=== PATIENT | female | born 1995 | race Caucasian/White ===

== ENCOUNTER 2017-05-12 13:32 | Outpatient (CLI) | payer MEDICAID, OTHER ==
[~2017-05-12] VITALS: Ht 157.5 cm; Wt 64.2 kg
[2017-05-12] MEDS ORDERED: FER325 PO (13:47)
[2017-05-12] MEDS ORDERED: PREN-93 PO (13:47)
[2017-05-12 13:48] VITALS: BP 110/66; PULSE 90; RESP 18; Ht 157.5 cm; Wt 64.2 kg
--- NOTE | 2017-05-12 14:38 | RADRPT ---
PROCEDURE: US OB biophysical profile. CLINICAL INDICATION: Decreased movements TECHNIQUE: Multiple sonographic images of the pelvis were obtained. The images were reviewed on a PACS workstation. COMPARISON: None FINDINGS: There is a viable intrauterine gestation. There is a normal amount of amniotic fluid with an DEYANIRA = 10.2 cm. Cardiac activity is present with 148 beats per minute. The placenta is posterior. No evidence of placenta previa or abruption. Biophysical profile: movement 2/2 tone 2/2. breathing 2/2 DEYANIRA 2/2 Total 01/02 IMPRESSION: Normal biophysical profile. Estimated gestational age: 28 weeks and 5 days RPTAT:AAJJ Physician Cassandra Date Time Electronically viewed and signed by Physician Cassandra on 05/12/2017 14:38 /
--- NOTE | 2017-05-12 14:47 | TRIAGE ---
OB Triage Datetime Report Generated by CPN: 05/12/2017 14:47 Datetime: 05/12/2017 13:45 Assessment Type: Triage Maternal Assessment Level of Consciousness: Fully Conscious DTR's/Clonus: DTRs 2+; No Clonus Headache: Denies Blurred Vision: No Respiratory Effort: Unlabored; Regular Rhythm; Equal Expansion Breath Sounds, Left: Clear and Equal Breath Sounds, Right: Clear and Equal Nausea/Vomiting: Denies RUQ Epigastric Pain: Denies Lower Extremities Edema: None Degree: None Upper Extremities Edema: None Degree: None Facial Edema: None Fall Risk Assessment History of Falling: (0) No Secondary Diagnosis: (0) No Ambulatory Aid: (0) Bedrest/Nurse Assist IV Therapy: (0) No Gait: (0) Normal/Bedrest/Immobile Mental Status: (0) Oriented to Own Ability Fall Score: 0 Fall Risk Score Definition: No Risk: No action required Datetime: 05/12/2017 13:44 Time of Arrival: 05/12/2017 13:28 EGA: 28.5 Arrived By: Ambulatory Arrived From: Home Chief Complaint: pt here c/o DFM Movement: Decreased Contractions: Denies/Absent Rupture of Membranes: Denies Vaginal Bleeding: None Vaginal Discharge: Denies Recent Sexual Intercouse: Denies Abdominal Trauma: Not Applicable Patient Complaints: None Time Provider Notified: 05/12/2017 13:50 Provider Notified: ANAI Initial Plan: NST/BPP Datetime: 05/12/2017 13:41 Labor Evaluation Monitor Mode: External Heart Rate Monitor Mode: External US
--- NOTE | 2017-05-12 14:58 | PN ---
Triage Information Date/Time 22 years old female 38 weeks and 5 days came to triage unit with complaint of decreased movement as of yesterday had biophysical profile 01/02 with DEYANIRA 10.2 patient reassured recommended to continue follow-up at [facility] with kick count instructions. Reason for visit: Decreased movement Weeks of Gestation 28 weeks 5 /Para Diabetes: none Hypertention: none Objective Vital Signs Date Time Temp Pulse Resp B/P Pulse Ox O2 Delivery O2 Flow Rate FiO2 05/12/17 13:48 98.4 90 18 110/66 97 Room Air Heart Rate: 130's Contractions: None Assessment/Plan 20 use 28 weeks 5 days complaint of decreased movement. Biophysical profile 01/02. Patient recommended follow-up at [facility] with kick count instructions . SAGRARIO OSPINA MD May 12, 2017 14:57
== END 2017-05-12 14:56 | disposition home or self-care (01) ==
LOC: OBT 13:32 → L-D 13:34 → OBT 14:56
PROVIDERS: ATTEND Obstetrics & Gynecology
DX: O36.8130 Decreased fetal movements, third trimester, not applicable or unspecified (principal); Z3A.28 28 weeks gestation of pregnancy
CPT/HCPCS: 76818; Z7500; G0463

== ENCOUNTER 2017-08-02 14:12 | Outpatient (CLI) | END 2017-08-02 17:00 | disposition home or self-care (01) ==

== ENCOUNTER 2017-08-07 14:05 | Inpatient (IN) | END 2017-08-10 19:01 | disposition home or self-care (01) | DRG 775 ==